=== PATIENT | male | born 1990 | race Caucasian/White ===

== ENCOUNTER 2018-11-11 05:31 | Inpatient (IN) | payer BC ==
[~2018-11-11] VITALS: Ht 177.8 cm; Wt 99.8 kg
[2018-11-11 06:43] LABS: CALCIUM 9.6 mg/dL (8.5-10.1); CREATININE 1.2 mg/dL (0.7-1.3); POTASSIUM 4.3 mmol/L (3.5-5.1)
[2018-11-11 06:48] LABS: ALBUMIN 4.2 g/dL (3.4-5.0); TOTAL BILIRUBIN 0.7 mg/dL (<0.1-1.0); TOTAL PROTEIN 7.9 g/dL (6.4-8.2)
[2018-11-11 07:30] VITALS: BP 124/80
[2018-11-11 12:12] VITALS: BP 111/66
--- NOTE | 2018-11-11 13:07 | NUR ---
RECEIVED PT APPROX 1130. A/O. C/O PAIN- EPIDURAL IN PLACE. DENIES NV. WOUND VAC IN PLACE. ABDOMINAL BINDER ON. SCDS. PT ON REGULAR DIET. GIVEN FULL LIQUIDS AT THIS TIME PER PT REQUEST. WILL CONT. TO MONITOR.
[2018-11-11 15:30] VITALS: BP 118/66
[2018-11-11 19:57] VITALS: BP 117/58
--- NOTE | 2018-11-12 04:20 | NUR ---
A/O, calm and cooperative; Epidura tolerated well, voiced of satisfiction of pain control through epidura; no report of breathing difficulty; patient got up and had a walk with a walker around the station once, steady. no n/v. aferbrile. Will keep monitoring.
[2018-11-12 05:12] VITALS: BP 136/71
[2018-11-12 05:59] LABS: HEMATOCRIT 44.3 % (42.0-52.0); HEMOGLOBIN 14.9 gm/dL (14.0-18.0); MCHC 33.6 g/dL (28.0-37.0); MCV 92.5 fL (80.0-100.0); RBC 4.79 mil/uL (4.50-6.00); RDW 13.5 % (10.5-14.5); WBC 17.2 thou/uL (4.0-11.0)
[2018-11-12 06:11] LABS: CALCIUM 8.7 mg/dL (8.5-10.1); CREATININE 1.3 mg/dL (0.7-1.3); POTASSIUM 4.6 mmol/L (3.5-5.1)
[2018-11-12 07:11] VITALS: BP 120/61
--- NOTE | 2018-11-12 14:54 | NUR ---
EPIDURAL DCED. P/O MEDS FOR PAIN WITH IV PAIN MEDS BACKUP. IF HE TOLERATES WELL, TO EPIDURAL WILL BE REMOVED IN AM. POSSIBLE DC TOMORROW.
[2018-11-12 20:31] VITALS: BP 137/77
--- NOTE | 2018-11-13 03:07 | NUR ---
A/O, calm and pleasant; patient c/o pain in abdomen, pain medication given and worked; epidural infusion had been discontinued befor the shift, paient tolerated well without the epidural infusion; patient got up and walked in the hallway with standby assist, steady; had dinner bought from outside by the girlfriend, hospital food tray untouched; vss, afebrile, bed rest now. Will keep monitoring.
[2018-11-13 05:23] LABS: HEMATOCRIT 42.3 % (42.0-52.0); HEMOGLOBIN 14.3 gm/dL (14.0-18.0); MCH 31.1 pg (26.0-34.0); MCHC 33.8 g/dL (28.0-37.0); MCV 91.9 fL (80.0-100.0); PLATELET COUNT 205 thou/uL (150-400); RBC 4.61 mil/uL (4.50-6.00); RDW 13.5 % (10.5-14.5)
[2018-11-13 05:40] LABS: CALCIUM 8.7 mg/dL (8.5-10.1); CREATININE 1.1 mg/dL (0.7-1.3)
[2018-11-13 05:50] LABS: ABSOLUTE NEUTROPHILS 7.8 thou/uL (1.4-8.2); PLATELET ESTIMATE NORMAL
[2018-11-13 09:00] VITALS: BP 124/70
[2018-11-13] MEDS ORDERED: NORCO 5-325 TA1 EACH PO (10:48)
[2018-11-13] MEDS ORDERED: ONDANSETRON HCL4 M2 PO (10:48)
--- NOTE | 2018-11-13 15:35 | NUR ---
PT ASSESSED AT START OF SHIFT. DOING WELL. PAIN WELL CONTROLLED W/ ORAL MED. EATING AND DRINKING WELL. PROVENA TO ABDOMINAL WOUND W/ ABD BINDER IN PLACE. DR. HUERTAS IN THIS AFTERNOON AND DC'D EPIDURAL CATHETER AND STATED PT MARCH D/C AFTER COUPLE OF OBSERVATION HOURS. DR. REDDY DID THE DISCHARGE AND WROTE FOR SCRIPTS. PT TO F/U W/ DR. BORRERO.
[2018-11-13 16:15] VITALS: BP 124/70
--- NOTE | 2018-11-16 12:07 | PATH ---
[facility] [address] [address] PATHOLOGY RPT PROCEDURE Name: JENNIFER TEIXEIRA Room #: 422-P [facility] IN M.R.#: [id number] Admission: 11/11/18 Date of : 89 Discharge: 11/13/18 Report #: [id number] Path Case #: [id number] [facility] Accession Number: [id number] . 01 Material submitted: . PART A: HYPERTROPHIC SCAR, ABDOMEN PART B: HERNIA SAC . 01 Clinician provided ICD-10: n . 01 Clinical history: . None provided . 02 Diagnosis: A. Hypertrophic scar, repair: - Dense collagen, compatible with the provided history of hypertrophic scar. . B. Hernia sac, repair: - Congested fibroadipose and fibrovascular connective tissue, compatible with a hernia sac. (IUV:ale; 11/14/2018) QMS/11/14/2018 . 02 Electronically signed: . Frances Jauregui MD, Pathologist NPI- [id number] . 01 Gross description: . A. The specimen is received in formalin, labeled "Jennifer Teixeira, hypertrophic scar, abdomen", is a chandler-brown, wrinkled skin with attached subcutaneous tissue measuring 23 x 1.5 x 0.8 cm. The skin surface has a well-healed scar and the underlying subcutaneous tissue is unremarkable. Obstetrics Gyn Physician tissue is submitted in A1. . B. The specimen is received in formalin, labeled "Jennifer Teixeira, hernia sac", are two fibromembranous soft tissue measuring 4.5 x 2.0 x 1.4 cm and 3.5 x 2.0 x 1.2 cm. No discrete nodules are masses are identified. Obstetrics Gyn Physician tissue is submitted in B1. (SWS; 11/11/2018) SHS/SHS . 02 Pathologist provided ICD-10: L91.0, K43.9 . 02 [place] [address] PATHOLOGY RPT PROCEDURE Name: JENNIFER TEIXEIRA Room #: 422-P [facility] IN [facility]#: [id number] Admission: 11/11/18 Date of : 89 Discharge: 11/13/18 Report #: [id number] Path Case #: [id number] Specimen Comment: A courtesy copy of this report has been sent to Specimen Comment: [phone], . Specimen Comment: Report sent to / DR GIBBONS Specimen Comment: A duplicate report has been generated due to demographic updates. Performed at: [address], [place], [place] [id number] MD Yan Jimenes MD Phone: [phone] Performed at: [address] [id number] MD Frances Jauregui MD Phone: [phone]
--- NOTE | 2018-12-04 22:04 | O ---
[facility] [place] [address] [place] [address] OPERATIVE REPORT Name: JENNIFER HOBSON Room #: 422-P [facility] IN M.R.#: [id number] Admission: 11/11/18 Attend Phys: Benny Adames MD, Discharge: 11/13/18 Date of : 89 Report #: [id number] THIS REPORT FOR: //name// CC: Mere Adames DATE OF SERVICE: 11/11/2018 PREOPERATIVE DIAGNOSIS: Multiple recurrent incisional ventral hernias. POSTOPERATIVE DIAGNOSIS: Multiple incarcerated recurrent incisional ventral hernias. PROCEDURES PERFORMED: 1. Exploratory laparotomy with lysis of adhesions. 2. Debridement of ischemic abdominal wall fascia. 3. Complex abdominal wall reconstruction with open repair of multiple incarcerated recurrent incisional ventral hernias using bioresorbable Phasix mesh. 4. Bilateral component separation of the transversus abdominis rectus space (TAR). 5. Adjacent tissue transfer closure of the anterior abdominal wall measuring 38 x 35 cm in dimension (1330 square cm). 6. Placement of a topical Prevena wound VAC device. SURGEON: Benny Adames M.D. WHEEL ALIGNER: TAYO Ayala. ANESTHESIA: General endotracheal anesthesia. ESTIMATED BLOOD LOSS: 20 mL. COMPLICATIONS: None appreciated. SPECIMENS: Abdominal wall fascia and hernia sac to pathology. 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 Unfortunately, the patient has now had multiple incisional hernias all along his longitudinal midline wound with a wide broad-based scar showing hypertrophic scarring. Due to the overt herniation, indication was for the above-mentioned procedures today. DESCRIPTION OF PROCEDURE: After explaining the risks, benefits and alternatives of the procedure with the patient in detail in the preoperative holding area and [facility] [address] [place] [address] OPERATIVE REPORT Name: JENNIFER HOBSON Room #: 422-P [facility] IN [facility].#: [id number] Admission: 11/11/18 Attend Phys: Benny Adames MD, Discharge: 11/13/18 Date of : 89 Report #: [id number] obtaining written consent, the patient was brought to the operating room and placed supine on the operating room table. After conducting a thorough timeout procedure verifying correct patient and procedure, the patient was given general endotracheal anesthesia. Once adequate anesthesia was obtained, his SCDs were hooked up to pneumatic compression device. He was given a preoperative dose of antibiotics in line with the SCIP protocol. The patient's abdomen was prepped and draped in standard surgical sterile fashion. A #10 bladed scalpel was used to create a longitudinal midline incision, excising his prior scar. Electrocautery was used to carry this down through skin and subcutaneous tissues to ensure hemostasis and the scar was removed and passed off the field. I entered into the abdomen through the center most portion of one of the hernia defects and placed a finger in the abdomen to control the fascial incision to ensure no injury to the underlying structures. Once I had opened the entire fascia, there were several incarcerated hernias containing omentum along the longitudinal midline wound. There was also ischemic abdominal wall fascia and hernia sac seen. As such, all of this was taken down with electrocautery, debrided back to healthy viable tissue and was passed off the field. Son clamps were placed on the fascial edges as the hernia defects were broad-based and could not be brought together down the midline without significant tension and I proceeded to enter into the transversus space by scoring along the fascial edge, 0.5 cm lateral and transecting the transversus abdominis muscle. This dissection was carried as far laterally on both sides as possible. This allowed significant medial mobilization of the abdominal wall tissues. I then closed the posterior fascia using looped #1 PDS in standard running fashion. I then selected a piece of Phasix mesh measuring 30 x 25 cm in dimension. This was tailored to fit in the transversus space and was placed appropriately and 30 mL of Tisseel were used to anchor this into position and prevent postoperative seroma formation. I then closed the anterior rectus fascial defect using looped #1 PDS suture in standard running fashion as well. Upon debridement of the abdominal wall and excision of the hernia sacs, we created large skin flaps and as such, I did perform an adjacent tissue transfer closure of the anterior abdominal wall by elevating the skin flaps and making counter incisions internally along the lateral aspects, which allowed medial rotation and mobilization of vascularized pedicles of subcutaneous tissue. These were anchored down the midline using several layers of inverted interrupted 3-0 Vicryl suture and then skin was closed with skin alissa. A topical wound VAC Prevena device was then placed overlying the abdominal wall. An abdominal binder was then placed. At the end of the procedure, all instrument, needle and sponge counts were correct. The patient tolerated the procedure without incident, was awakened in the operating room and transitioned to the recovery room in stable condition with no apparent complications. <ELECTRONICALLY SIGNED> By: Benny Adames MD, FACS 12/04/18 [id number] Benny Adames MD, FACS /nt
== END 2018-11-13 16:51 | disposition home or self-care (01) | DRG 355 ==
LOC: TBA 05:31 → OR 05:31 → TBA 05:32 → OR 08:00 → 4E 12:07 → OR 12:09 → 4E 12:10 → OR 14:11 → 4E 11-13 16:51
PROVIDERS: Student in an Organized Health Care Education/Training Program; ADMIT Surgery
PROC: 0JB80ZZ Excision of Abdomen Subcutaneous Tissue and Fascia, Open Approach (ICD-10-PCS; principal; 2018-11-11)
PROC: 0KNK0ZZ Release Right Abdomen Muscle, Open Approach (ICD-10-PCS; principal; 2018-11-11)
PROC: 0KNL0ZZ Release Left Abdomen Muscle, Open Approach (ICD-10-PCS; principal; 2018-11-11)
PROC: 0HX7XZZ Transfer Abdomen Skin, External Approach (ICD-10-PCS; principal; 2018-11-11)
PROC: 0WUF0JZ Supplement Abdominal Wall with Synthetic Substitute, Open Approach (ICD-10-PCS; principal; 2018-11-11)
DX: K43.0 Incisional hernia with obstruction, without gangrene (principal); F17.210 Nicotine dependence, cigarettes, uncomplicated
CPT/HCPCS: 10783; 50010; 50093; 50101; 50386; 50455; 50648; 50953; 51114; 51437; 56524; 56526; 56527; 56530; 57092; 57190; 62110; 62900; 65075; 70005

== ENCOUNTER 2018-11-18 21:03 | Emergency (ER) | payer BC ==
[~2018-11-18] VITALS: Ht 177.8 cm; Wt 96.6 kg
[~2018-11-18 21:03] MED LIST: NORCO 5-325 TA1 EACH PO; ONDANSETRON HCL4 M2 PO
[2018-11-18 21:07] VITALS: BP 126/80
[2018-11-18] MEDS ORDERED: PROBIOTIC1 EAC1 PO (21:12)
[2018-11-18] MEDS ORDERED: COLACE100 MG PO (21:12)
== END 2018-11-18 22:06 | disposition home or self-care (01) ==
LOC: ER 21:03
DX: Z48.01 Encounter for change or removal of surgical wound dressing (principal); F17.210 Nicotine dependence, cigarettes, uncomplicated